=== PATIENT | male | born 1965 | race Caucasian/White ===

== ENCOUNTER 2025-04-10 14:43 | Emergency (ER) | payer MEDICARE ==
[2025-04-10] MEDS ORDERED: EPINEPHRINE ABBOJECT 1 MG/10 ML ONE (15:00)
[2025-04-10 15:06] VITALS: PULSE 0
--- NOTE | 2025-04-10 15:07 | ERPHSYRPT ---
- History of Present Illness Physician History: EMS transport, cardiopulmonary arrest, EMS arrived to his house he was short of breath, he has been short of breath all night long apparently using 15 L nasal cannula, the patient is history of severe lung disease (pulmonary fibrosis and obstructive pulmonary disease), he uses 10 L nasal cannula at night, yesterday he apparently required 10 L nasal cannula through the day and night and was still short of breath so the family member increased it to 15 L, during EMS transport when they arrived patient was awake and alert answering questions, he was placed in the ambulance and suddenly became unresponsive, no spontaneous heart rate or respirations Aspirin Treatment Today: no aspirin today Allergies/Adverse Reactions: No Known Drug Allergies Allergy (Unverified 04/10/25 14:59) Home Medications: Unobtainable 04/10/25 [History] - Physical Exam Eye Exam: other (fixed and dilated) Ears, Nose, Throat Exam: normal ENT inspection Neck Exam: normal inspection Respiratory Exam: other (No spontaneous respirations, I-Gel in place bagged with 100% oxygen) Cardiovascular Exam: other (No spontaneous heartbeat) Neurologic Exam: other (No response to painful or verbal stimuli) Skin Exam: mottled SpO2 Interpretation: airway management int. O2 Delivery: Ambu-Bag Procedures - Intubation Time of Intubation: 14:52 Intubation Indications: cardiac arrest Intubation Method: glidescope Tube Size (cm): 7.5 Endotracheal Tube Confirmation: good rise & fall of chest Intubation Complications: no complications Performed By: ED Physician Ordered Tests: Active Orders 24 hr Category Date Time Status CHEST 1 VIEW (PORTABLE) Stat Exams 04/10/25 14:47 Ordered - Progress Air Movement: fair Progress Note: 04/10/25 15:08 I-Gel Was removed and he was intubated using a 7.5 mm endotracheal tube, E-Z cap with color change, Medications per the nursing code sheet, the family members are in the Emergency Department I discussed the patient's status and they stated that he was a DNR the last time he was in the hospital, the daughter is the POA, they contacted the daughter and CPR was stopped, He was pronounced at 1456 - Departure Departure Disposition: Clinical Impression: Cardiopulmonary arrest Condition: Critical Care Time: Yes Critical Care Time(excluding separately billable procedures): Critical 30-74 mins
== END 2025-04-10 16:39 | disposition expired ==
LOC: ED 14:43 → EDBD 14:43 → MERGE 14:43 → ED 16:39
DX: I46.9 Cardiac arrest, cause unspecified (principal)